=== PATIENT | female | born 1975 | race Two or more races ===

== ENCOUNTER 2025-07-04 07:47 | Emergency (ER) | payer MEDICAID, SELFPAY ==
[2025-07-04 08:05] VITALS: BP 166/99; PULSE 89; RESP 18; TEMP 36.7; O2SAT 99; BMI 30.1
--- NOTE | 2025-07-04 08:21 | XR_ITS ---
EXAMINATION: Thoracic spine 3 views TECHNIQUE: AP lateral and coned lateral epidural spine 3 views Date and time: July 04, 2025, 0851 hours INDICATIONS: Lifting injury to the upper back 2 days ago, upper back pain FINDINGS: No acute thoracic fracture. Mild to moderate diffuse thoracic degenerative disc disease IMPRESSION: No acute thoracic fracture
--- NOTE | 2025-07-04 08:21 | XR_ITS ---
EXAMINATION: Lumbar spine 3 views TECHNIQUE: AP, lateral, coned lateral lower lumbar spine 3 views Date and time: July 04, 2025, 0851 hours INDICATIONS: Lifting injury to the lower back 2 days ago, lower back pain. FINDINGS: Satisfactory alignment lumbar vertebral bodies No lumbar fracture. No spondylolisthesis. IMPRESSION: No lumbar fracture
--- NOTE | 2025-07-04 08:21 | XR_ITS ---
EXAMINATION: Cervical spine 3 views TECHNIQUE: AP lateral coned AP odontoid cervical spine 3 views Date and time: July 04, 2025, 0840 hours INDICATIONS: Lifting injury to the neck 2 days ago, neck pain. FINDINGS: Satisfactory [employer] cervical vertebral bodies. No cervical fracture. Intact odontoid. IMPRESSION: No cervical fracture
--- NOTE | 2025-07-04 08:22 | XR_ITS ---
Examination: Shoulder, left, 3 views Technique: Shoulder AP internal rotation, AP external rotation, Y view shoulder, 3 views Exam date and time : July 04, 2025, 0840 hours INDICATIONS: Lifting injury to the shoulder 2 days ago, shoulder pain. FINDINGS: No shoulder fracture or dislocation. No AC joint separation. IMPRESSION: No acute shoulder fracture
--- NOTE | 2025-07-04 08:34 | PC.NURSE ---
PATIENT REFUSING TYLENOL DUE TO TAKING TYLENOL 1000MG THIS MORNING PRIOR TO COMING TO ED. ICE PACK GIVEN. PROVIDER MADE AWARE.
--- NOTE | 2025-07-04 09:15 | EDNOTE_ITS ---
<Statement entered by Kari Malone MD - 07/18/25 14:18> As co-signing physician, I was present and available for consult prn. I concur with the plan and care as documented by the midlevel provider. ED Back Injury Pain RME/HPI General Chief Complaint: Back Pain/Injury Stated Complaint: L SHOULDER AND LOWER BACK INJURY YESTERDAY Time Seen by Provider: 07/04/25 07:50 Arrival date/time: 07/04/25 07:47 This is a 50-year-old female that comes into the emergency room with complaints of left shoulder upper and lower back pain. That started yesterday. 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 Patient reports that she has to put salt in the dialyzes and she picked it up off the floor it weighs approximately 40 pounds per patient and then she had to lifted up and put it into the container. Patient states when she did this she felt like her back left shoulder started hurting. Patient states she had some tingling to her left arm shortly after the incident. Patient denies any other trauma. Patient has no open wounds or sores. Related Data Previous Rx's ?Medication ?Instructions ?Recorded cyclobenzaprine 10 mg tablet 10 mg PO BID #20 tabs ibuprofen 800 mg tablet 800 mg PO Q6H PRN pain #20 t abs 07/04/25 Allergies Allergy/AdvReac Type Severity Reaction Status Date / Time No Known Allergies Allergy Verified 07/04/25 07:51 Review of Systems Review of Systems Systems Reviewed: All systems reviewed, normal except as documented Past Medical History Past Medical History Comments PMH COMMENT: None ED Exam Narrative Physical exam: VITAL SIGNS: Reviewed. GENERAL APPEARANCE: Alert and interactive, follows commands, no acute distress HEAD AND FACE: Non-traumatic. ENT: PERRL, conjuctiva pink and clear, eyelid no trauma, Mucous membrane moist. NECK: Supple, nontender, no nuchal rigidity. CHEST: No tenderness, no crepitus, no paradoxical movement, no retractions. LUNGS: breathing even and unlabored HEART: Regular rate, cap refill less than 2 seconds ABDOMEN: Soft, nondistended, no guarding, nontender, no rebound, no masses, NEUROLOGICAL: Gross motor function intact sensory function intact, Appropriate for age. MUSCULOSKELETAL: Mild pain to palpation to lateral muscles of the lower back and muscles surrounding the posterior lateral neck and shoulder. No deformities noted. Full range of motion. no midline tenderness, no meningismus, no step offs EXTREMITIES: No redness no swelling no skin breakdown on bilateral foot and leg. Distal neurovascular status intact bilateral foot SKIN: Color pink, dry, no rash Course Quality Measures none Orders Category Date Time Status XR cervical spine 2-3V Stat Exams 07/04/25 08:21 Completed XR lumbar spine 2-3V Stat Exams 07/04/25 08:21 Completed XR shoulder LT min 2V Stat Exams 07/04/25 08:22 Completed XR thoracic spine 2V Stat Exams 07/04/25 08:21 Completed Acetaminophen Tab [Tylenol ES Tab] Med 07/04/25 08:20 Discontinued 1,000 mg PO X1 ONE Vital Signs Vital signs: Vital Signs Temperature 98.0 F 07/04/25 08:05 Pulse Rate 89 07/04/25 08:05 Respiratory Rate 18 07/04/25 08:05 Blood Pressure 166/99 H 07/04/25 08:05 Pulse Oximetry (%) 99 07/04/25 08:05 Oxygen Delivery Method Room Air 07/04/25 08:05 Back Pain / Injury MDM Narrative MDM Narrative:: cervical x ray: FINDINGS: Satisfactory [employer] cervical vertebral bodies. No cervical fracture. Intact odontoid. IMPRESSION: No cervical fracture thoracic x ray: FINDINGS: No acute thoracic fracture. Mild to moderate diffuse thoracic degenerative disc disease IMPRESSION: No acute thoracic fracture lumbar spine: FINDINGS: Satisfactory alignment lumbar vertebral bodies No lumbar fracture. No spondylolisthesis. IMPRESSION: No lumbar fracture shoulder: FINDINGS: No shoulder fracture or dislocation. No AC joint separation. IMPRESSION: No acute shoulder fracture I spoke to patient at length. Today patient had xrays. There was no acute fracture seen. Exam appeared unremarkable. I explained to patient at length that if there was continued pain to this area or worsened to come back to ED or see primary provider for more xrays or further testing such as CT scan or MRI. X rays are not perfect and sometimes serial films needed. Explained to patient that x-rays do not show ligament injury and issues with continued pain she may need an MRI. Patient verbalized understanding. Patient states they will follow up with primary provider in 1-2 days or come back to ED if symptoms change or worsen. Dragon dictation: Although this document has been carefully reviewed, there may still be some phonetic and other typographical errors. These errors are purely grammatical due to imperfections in the software program and should not be construed in any way to compromise the substance of the patient's medical care during this visit. Patient data External records reviewed:: [facility] previous records Clinical information provided by:: patient Social determinants that could affect healthcare access:: none Patient has the following chronic illnesses:: none How is presenting disease/condition affected by chronic disease/condition?: no chronic disease Evaluation data The following diagnostics were reviewed and interpreted by me:: radiology exam(s) Lab and/or radiology exams considered but not ordered:: none Interpretation Summary: see note Medications / Prescriptions Medications or Prescriptions considered but not ordered:: none Medication administrations:: Medication Administration History Discontinued Medications Acetaminophen (Acetaminophen 500 Mg Tablet) 1,000 mg PO X1 ONE Stop: 07/04/25 08:21 Last Admin: 07/04/25 08:34 Dose: Not Given Documented By: MJ Non-Admin Reason: Patient Refused see mar Consultations Consultation(s) initiated? (list below): No Diagnosis Most likely diagnosis given after review of the tests above:: contusions Admission Indicated Admission indicated?: not indicated Admission Request Was there a request for admission?: No Disposition Plan Disposition Plan: Discharge Discharge Attestation Discharge Attestation: The patient and all family members were given an opportunity to ask questions and understood the discharge instructions. Discharge instructions specifically effects, indications for sooner follow up or return to the emergency department, and the expected course of current diagnosis. Patient condition: Stable Discharge Plan Plan Patient Disposition: HOME (Self Care) Patient condition on transfer: Stable Prescriptions/Referrals Prescriptions/Med Rec: New cyclobenzaprine 10 mg tablet 10 mg PO BID Qty: 20 0RF ibuprofen 800 mg tablet 800 mg PO Q6H PRN (Reason: pain) Qty: 20 0RF Referrals: No Primary/Family,Physician [Primary Care Provider] - In 1 week Problem List Clinical Impression: Acute shoulder pain, Back pain Patient/Caregiver Discharge Instructions Discharge Activity: activity as tolerated Education Materials: ED Back Pain (Acute or Chronic), ED RICE Additional Instructions: Follow up with primary provider in 1-2 days. Come back to ED if symptoms change or worsen Print Language: Cambodian Stand Alone Forms: Racquel Award Info., Work/School Release, Patient Portal Info Letter PA/ALIDA Supervising Physician PA/OCEANOGRAPHY TEACHER Supervising Physician: mitra
== END 2025-07-04 10:37 | disposition home or self-care (01) ==
PROVIDERS: Emergency Provider Emergency Medicine
DX: S39.92XA Unspecified injury of lower back, initial encounter (principal); X50.0XXA Overexertion from strenuous movement or load, initial encounter
CPT/HCPCS: 72040; 72070; 72100; 73030; 99283